=== PATIENT | male | born 1945 | race Caucasian/White ===

== ENCOUNTER 2021-12-06 05:14 | Observation (INO) | payer MEDICARE, OTHER ==
[2021-12-06] MEDS ORDERED: Nitroglycerin 50 MG/250 ML BOT 0 ML ONE (05:37)
[2021-12-06] MEDS ORDERED: Heparin 10,000 UNITS/ 10 ML VIAL ONE (05:37)
[2021-12-06] MEDS ORDERED: Lidocaine 1% (PF) 30 ML VIAL ONE ×2 (05:37→06:09)
[2021-12-06] MEDS ORDERED: Adenosine 6 MG/2 ML VIAL ONE (05:38)
[2021-12-06] MEDS ORDERED: Ondansetron PF 4 MG/2 ML Vial ONE (05:47)
[2021-12-06] MEDS ORDERED: Atropine Sulfate 0.4 mg/1 ml Vial ONE (05:48)
[2021-12-06] MEDS ORDERED: Fentanyl 100 MCG/2 ML VIAL ONE (05:48)
[2021-12-06] MEDS ORDERED: Midazolam HCl 2 mg/2 ml Vial ONE (05:49)
[2021-12-06] MEDS ORDERED: CEFAZOLIN 1 GM VIAL ONE (05:57)
[2021-12-06] MEDS ORDERED: Gentamicin 80 MG/2 ML VIAL ONE (05:57)
[2021-12-06] MEDS ORDERED: hydrALAZINE 20 MG/ML VIAL ONE (08:22)
[2021-12-06] MEDS ORDERED: Amlodipine 5 MG TAB PO SCH ×2 (08:45→21:00)
[2021-12-06] MEDS ORDERED: Iopamidol 300 61% 50 ML VIAL FS ONE (09:44)
[2021-12-06] MEDS ORDERED: Acetaminophen/Codeine 30-300mg Tablet PO PRN (10:16)
[2021-12-06] MEDS ORDERED: Acetaminophen 325 MG TAB PO PRN (10:16)
[2021-12-06 11:42] VITALS: BMI 24.8
[2021-12-06 12:50] LABS: Troponin I 0.164 ng/mL (< 0.028)
[2021-12-06] MEDS ORDERED: Lisinopril 20 MG TAB PO SCH (13:00)
[2021-12-06] MEDS ORDERED: hydrALAZINE 20 MG/ML VIAL SLOW IVP PRN (14:07)
[2021-12-06] MEDS ORDERED: Dextrose 5% in Water 1,000 ML IV PRN (14:08)
[2021-12-06] MEDS ORDERED: Dextrose 50% Abboject 50 ML SYRINGE SLOW IVP PRN (14:08)
[2021-12-06 14:29] LABS: Hemoglobin A1c 7.8 % (4.0-6.0)
[2021-12-06 14:43] LABS: Magnesium 1.8 mg/dL (1.6-2.6)
[2021-12-06] MEDS ORDERED: Magnesium 2 GM/50 ML(in water) 2 GM in Premix Bag 1 BAG IVPB SCH (15:30)
[2021-12-06 16:47] LABS: Troponin I 0.128 ng/mL (< 0.028)
[2021-12-06] MEDS: HumaLOG 300 UNITS/3 ML VIAL SC PRN ×2 (17:10→21:11)
[2021-12-06] MEDS ORDERED: Atorvastatin Calcium 40 MG TAB PO SCH (21:00)
[2021-12-06] MEDS ORDERED: Lantus 1000 UNITS/10 ML VIAL SC SCH (21:00)
[2021-12-06] MEDS: Cephalexin 500 MG CAP PO SCH (21:16)
[2021-12-07] MEDS ORDERED: Lisinopril 20 MG TAB PO SCH ×2 (09:00)
[2021-12-07] MEDS ORDERED: Aspirin 81 mg Enteric Coated Tablet PO SCH (09:00)
[2021-12-07] MEDS ORDERED: Cholecalciferol 1,000 UNITS (25 MCG) TAB PO SCH (09:00)
[2021-12-07] MEDS ORDERED: Lantus 1000 UNITS/10 ML VIAL SC SCH (09:00)
[2021-12-07] MEDS: Cephalexin 500 MG CAP PO SCH (09:22)
[2021-12-07 12:33] VITALS: BP 147/71; TEMP 97.8
== END 2021-12-07 12:48 | disposition home or self-care (01) ==
LOC: CSHCCL 05:14 → CSHTELE 11:47
PROVIDERS: ADMIT Specialist; ATTEND Specialist
DX: I44.2 Atrioventricular block, complete (principal); I10 Essential (primary) hypertension; E11.9 Type 2 diabetes mellitus without complications; N40.0 Benign prostatic hyperplasia without lower urinary tract symptoms; E78.5 Hyperlipidemia, unspecified; Z95.0 Presence of cardiac pacemaker; Z79.899 Other long term (current) drug therapy; Z79.82 Long term (current) use of aspirin; Z79.84 Long term (current) use of oral hypoglycemic drugs
CPT/HCPCS: 33208; 71045; 82962 ×2; 83036; 83735; 84443; 84484; 93306; 94760; 96374; 96375; C1785; C1898 ×2; G0378 ×2; 36415; 36416; 99152; 99153; J0153; J0360; J0461; J0690; J1580; J1644; J1815; J2001; J2250; J2405; J3010; J3475; Q9967

== ENCOUNTER 2022-11-19 13:26 | Outpatient (CLI) | payer OTHER | END 2022-11-19 13:27 | disposition home or self-care (01) | LOC: CSHSPEC 13:26 | PROVIDERS: ATTEND Family Medicine | DX: R29.898 Other symptoms and signs involving the musculoskeletal system (principal); M48.061 Spinal stenosis, lumbar region without neurogenic claudication; R29.6 Repeated falls; Z95.0 Presence of cardiac pacemaker; M51.36 Other intervertebral disc degeneration, lumbar region; M47.816 Spondylosis without myelopathy or radiculopathy, lumbar region; R93.7 Abnormal findings on diagnostic imaging of other parts of musculoskeletal system | CPT/HCPCS: 71045; 72148 ==